=== PATIENT | male | born 1985 | race Caucasian/White ===

== ENCOUNTER 2016-12-03 10:47 | Emergency (ER) | payer SELFPAY ==
[~2016-12-03] VITALS: Ht 175.3 cm; Wt 81.8 kg
[2016-12-03] MEDS ORDERED: METF500T4 PO (10:52)
[2016-12-03 10:56] LABS: GLUCOSE,POINT OF CARE 137 MG/DL (70-110)
[2016-12-03 11:15] VITALS: BP 135/74
== END 2016-12-03 11:50 | disposition home or self-care (01) ==
LOC: EMS 10:49
DX: R21 Rash and other nonspecific skin eruption (principal); E11.9 Type 2 diabetes mellitus without complications; F17.210 Nicotine dependence, cigarettes, uncomplicated
CPT/HCPCS: 82962; 99282; 99283